=== PATIENT | female | born 2005 | race Caucasian/White ===

== ENCOUNTER 2024-10-13 23:32 | Emergency (ER) | payer BC, SELFPAY ==
[2024-10-13 23:34] VITALS: BMI 21.9
--- NOTE | 2024-10-13 23:40 | PC.NURSE ---
C COLLAR PLACED ON PT
[2024-10-14 00:32] VITALS: BP 127/83; PULSE 76; RESP 18; TEMP 36.8; O2SAT 97
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
== END 2024-10-14 01:27 | disposition home or self-care (01) ==
PROVIDERS: Emergency Provider Emergency Medicine
DX: S16.1XXA Strain of muscle, fascia and tendon at neck level, initial encounter (principal); S09.90XA Unspecified injury of head, initial encounter; V89.2XXA Person injured in unspecified motor-vehicle accident, traffic, initial encounter
CPT/HCPCS: 70450; 72125; 99283